=== PATIENT | male | born 1985 | race African-American/Black ===

== ENCOUNTER 2019-07-14 09:13 | Emergency (ER) | payer OTHER ==
[~2019-07-14] VITALS: Ht 175.3 cm; Wt 86.2 kg
[2019-07-14 09:16] VITALS: BP 125/74; Ht 175.3 cm; Wt 86.2 kg
== END 2019-07-14 11:04 | disposition home or self-care (01) ==
LOC: ED 09:13
DX: M25.562 Pain in left knee (principal)

== ENCOUNTER 2020-01-25 14:40 | Emergency (ER) | payer OTHER ==
[~2020-01-25] VITALS: Ht 175.3 cm; Wt 83.9 kg
[2020-01-25 15:09] VITALS: Ht 175.3 cm; Wt 83.9 kg
[2020-01-25 15:46] VITALS: BP 147/100
== END 2020-01-25 15:46 | disposition home or self-care (01) ==
LOC: ED 14:40
DX: E86.0 Dehydration (principal); R11.10 Vomiting, unspecified
CPT/HCPCS: Q0162